=== PATIENT | male | born 1995 | race Caucasian/White ===

== ENCOUNTER 2017-06-13 12:16 | Emergency (ER) | payer OTHER ==
[~2017-06-13] VITALS: Ht 172.7 cm; Wt 70.3 kg
[2017-06-13] MEDS ORDERED: BENTYL10 MG PO (14:53)
== END 2017-06-13 15:05 | disposition home or self-care (01) ==
LOC: ED 12:16
DX: R10.9 Unspecified abdominal pain (principal); F17.210 Nicotine dependence, cigarettes, uncomplicated
CPT/HCPCS: 80053; 81001; 83690; 85025; 99283

== ENCOUNTER 2020-10-25 19:16 | Emergency (ER) | payer OTHER ==
[~2020-10-25] VITALS: Ht 172.7 cm; Wt 73.0 kg
[~2020-10-25 19:16] MED LIST: BENTYL10 MG PO
--- OUTSIDE RECORDS SUMMARY | 2020-10-25 19:18 | XMS ---
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 [place] VISIT COUNT (12 MO.) Nestor Marino TOTAL 1 NOTE: Visits indicate total known visits. ED/UCC VISIT TRACKING (12 MO.) 10/25/2020 19:17 [facility] TYPE: Emergency COMPLAINT: - DOG BITE INPATIENT VISIT TRACKING (12 MO.) No inpatient visits to display in this time frame [email or web address]
[2020-10-25] MEDS ORDERED: AUGMENTIN 875-1 EACH PO (20:48)
== END 2020-10-25 21:31 | disposition home or self-care (01) ==
LOC: ED 19:16
DX: S61.451A Open bite of right hand, initial encounter (principal); L08.9 Local infection of the skin and subcutaneous tissue, unspecified; W54.0XXA Bitten by dog, initial encounter; F17.200 Nicotine dependence, unspecified, uncomplicated
CPT/HCPCS: 73130; 85025; 99283-25

== ENCOUNTER 2022-07-19 11:36 | Emergency (ER) | payer OTHER ==
[~2022-07-19] VITALS: Ht 172.7 cm; Wt 66.4 kg
[~2022-07-19 11:36] MED LIST changes: +AUGMENTIN 875-1 EACH PO
--- OUTSIDE RECORDS SUMMARY | 2022-07-19 11:44 | XMS ---
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 [place] VISIT COUNT (12 MO.) Nestor Marino TOTAL 1 NOTE: Visits indicate total known visits. ED/UCC VISIT TRACKING (12 MO.) 07/19/2022 11:[address] [facility] TYPE: Emergency COMPLAINT: - COLD/FLU SYMPTOMS INPATIENT VISIT TRACKING (12 MO.) No inpatient visits to display in this time frame [email or web address]
== END 2022-07-19 14:00 | disposition left against medical advice (07) ==
LOC: ED 11:36
DX: R05.9 Cough, unspecified (principal); R52 Pain, unspecified; Z20.822 Contact with and (suspected) exposure to COVID-19; Z53.21 Procedure and treatment not carried out due to patient leaving prior to being seen by health care provider
CPT/HCPCS: 87502; U0003

== ENCOUNTER 2022-10-18 12:08 | Emergency (ER) | payer OTHER ==
[~2022-10-18] VITALS: Ht 172.7 cm; Wt 66.2 kg
--- OUTSIDE RECORDS SUMMARY | 2022-10-18 12:18 | XMS ---
PreManage Notification: TONA TARANGO Security [place] [employer] Events 1 event(s) in the past 18 months Most recent security events: Elopement at [facility] 07/19/2022 11:37 - Patient eloped before treatment completed. - Patient with suicidal and/or homicidal ideations eloped. - Patient eloped with IV in place. Details: Patient LWBS. CRITERIA MET - Group Notification CARE PROVIDERS -Myrna Dentist: Heavy Equipment Diesel Mechanic [facility] PHONE: [phone] FÁTIMA WINSTON Nurse Practitioner: Family Current PHONE: Unknown SILVIA BLACKWOOD Nurse Practitioner: Family Current PHONE: [phone] Jon has no Care Guidelines for this patient. [place] VISIT COUNT (12 MO.) 2 [facility] Marino TOTAL 2 NOTE: Visits indicate total known visits. ED/UCC VISIT TRACKING (12 MO.) 10/18/2022 12:10 [facility] TYPE: Emergency COMPLAINT: - STERNUM/CHEST PAIN, PAINFUL TO SWALLOW 07/19/2022 11:[address] [facility] TYPE: Emergency COMPLAINT: - COLD/FLU SYMPTOMS DIAGNOSES: - Contact with and (suspected) exposure to COVID-19 - Pain, unspecified - Cough, unspecified - Procedure and treatment not carried out due to patient leaving prior to being seen by health care provider INPATIENT VISIT TRACKING (12 MO.) No inpatient visits to display in this time frame [email or web address]
--- NOTE | 2022-10-19 21:44 | EKG ---
[facility] [address] [place] [address] Signed Normal sinus rhythm Left axis deviation Incomplete right bundle branch block Abnormal ECG No previous ECGs available Confirmed by GRISELDA العلي MD ([id number]) on 10/19/2022 9:44:31 PM Electronically Signed By: GRISELDA العلي MD 10/19/222143 PATIENT NAME: TONA TARANGO Electrocardiogram DATE OF : [birth year] PHYSICIAN: GRISELDA العلي MD REPORT #: [id number] REPORT IS CONFIDENTIAL AND NOT TO BE RELEASED WITHOUT AUTHORIZATION
== END 2022-10-18 14:17 | disposition home or self-care (01) ==
LOC: ED 12:08
DX: R07.89 Other chest pain (principal); F17.200 Nicotine dependence, unspecified, uncomplicated
CPT/HCPCS: 71046; 93005; 93010; 99285-25